=== PATIENT | female | born 1985 ===

== ENCOUNTER 2024-07-13 08:30 | Inpatient (IN) | payer OTHER ==
[~2024-07-13] VITALS: Ht 152.4 cm; Wt 70.3 kg
[2024-07-13] MEDS ORDERED: MEGESTROL ACETA40 MG PO (09:58)
[2024-07-13 10:00] LABS: HEMATOCRIT 42.6 % (36.0-45.00); HEMOGLOBIN 14.8 g/dL (12.0-15.00); MEAN CELL VOLUME 94.7 fL (80.00-100.00); MEAN CORPUSCULAR HEMOGLOBIN 32.9 pg (27.00-32.0); MEAN CORPUSCULAR HGB CONC 34.7 g/dl (32.0-36.0); PLATELET COUNT 234 K/uL (150-450); RED CELL DISTRIBUTION WIDTH 13.2 % (11.5-14.5)
[2024-07-13] MEDS ORDERED: [UNRECOGNIZED DRUG - OTHER] PO (10:00)
[2024-07-13] MEDS ORDERED: RESVERATROL50 MG PO (10:01)
[2024-07-13 10:05] VITALS: BP 140/98
[2024-07-13 10:09] LABS: PH,URINE 5.5 (5.0-8.0); URINE APPEARANCE Cloudy; URINE BILIRRUBIN Small (NEGATIVE); URINE BLOOD Small; URINE COLOR Dark Yellow; URINE GLUCOSE Negative (NEGATIVE); URINE KETONE Negative (NEGATIVE); URINE LEUKOCYTE Small; URINE NITRATE Negative; URINE PROTEIN 30 (NEGATIVE)
[2024-07-13 10:13] LABS: URINE EPITHELIAL CELLS 97.2 uL (0.0-38.8); URINE RBC 41.9 uL (0.0-20.8); URINE WBC 88.8 uL (0.0-23.2)
[2024-07-13 10:22] LABS: URINE CAST 0.29 uL (0.0-1.40)
[2024-07-13 10:23] LABS: INR 0.97; PARTIAL THROMBOPLASTIN TIME 29.8 SECONDS (22.0-34.0); PROTHROMBIN TIME 10.6 SECONDS (9.0-11.5); URINE MUCUS HEAVY
[2024-07-13 10:55] LABS: BILIRUBIN TOTAL 0.95 mg/dL (0.3-1.2); CALCIUM 9.5 mg/dL (8.5-10.1); CREATININE SERUM 0.63 mg/dL (0.55-1.02); GFR 104.14; GLOBULINA 3.3 G/DL (2.4-3.5); POTASSIUM 3.87 mEq/L (3.5-5.1); TOTAL PROTEIN 7.3 gm/dL (6.4-8.2)
[2024-07-23] MEDS ORDERED: CEFAZOLIN SODIUM 1,000 MG VIAL IV ONE (14:15)
[2024-07-23] MEDS ORDERED: POVIDONE-IODINE 118 ML BOTT TOP ONE (14:15)
[2024-07-23] MEDS ORDERED: SUGAMMADEX SODIUM 200 MG/2 ML VIAL IV ONE (17:25)
[2024-07-23] MEDS ORDERED: RINGERS SOLUTION,LACTATED 1,000 ML IV SCH (17:45)
[2024-07-23] MEDS ORDERED: MORPHINE SULFATE 4 MG/ML CARTRIDGE IV PRN (17:45)
[2024-07-23] MEDS ORDERED: PROMETHAZINE HCL 25 MG/ML AMPUL IV PRN (18:00)
[2024-07-23] MEDS ORDERED: MORPHINE SULFATE 4 MG/ML VIAL IV ONE ×2 (18:15→19:45)
[2024-07-23 18:50] VITALS: BP 138/86
[2024-07-23] MEDS ORDERED: ENALAPRILAT DIHYDRATE 1.25 MG/ML VIAL IV PRN (20:45)
[2024-07-23 23:06] LABS: HEMOGLOBIN 12.9 g/dL (12.0-15.00); MEAN CELL VOLUME 93.6 fL (80.00-100.00); MEAN CORPUSCULAR HEMOGLOBIN 31.9 pg (27.00-32.0); PLATELET COUNT 220 K/uL (150-450); RED BLOOD COUNT 4.06 M/uL (4.00-6.00); RED CELL DISTRIBUTION WIDTH 13.3 % (11.5-14.5)
[2024-07-23 23:26] LABS: ALBUMIN 3.5 gm/dL (3.4-5.0); BILIRUBIN TOTAL 0.85 mg/dL (0.3-1.2); CALCIUM 8.5 mg/dL (8.5-10.1); CREATININE SERUM 0.62 mg/dL (0.55-1.02); GFR 106.08; GLOBULINA 2.7 G/DL (2.4-3.5); POTASSIUM 3.54 mEq/L (3.5-5.1); TOTAL PROTEIN 6.2 gm/dL (6.4-8.2)
[2024-07-24 01:00] VITALS: BP 127/77
[2024-07-24 05:00] VITALS: BP 122/79
[2024-07-24 08:40] VITALS: BP 127/82; O2SAT 100
[2024-07-24] MEDS ORDERED: IBUprofen 800 MG TABLET PO PRN (09:00)
[2024-07-24] MEDS ORDERED: SIMETHICONE 125 MG CAPSULE PO SCH (09:00)
[2024-07-24] MEDS ORDERED: TRAMADOL HCL 50 MG TABLET PO PRN (09:00)
[2024-07-24] MEDS ORDERED: DOCUSATE SODIUM 100MG CAP PO SCH (09:00)
== END 2024-07-24 14:45 | disposition home or self-care (01) | DRG 743 ==
LOC: SURH 07-23 08:30 → OB/GYN 07-23 18:08
PROVIDERS: ADMIT Student in an Organized Health Care Education/Training Program; ATTEND Student in an Organized Health Care Education/Training Program
PROC: 0UT74ZZ Resection of Bilateral Fallopian Tubes, Percutaneous Endoscopic Approach (ICD-10-PCS; 2024-07-23)
PROC: 0UT94ZZ Resection of Uterus, Percutaneous Endoscopic Approach (ICD-10-PCS; principal; 2024-07-23 12:45)
DX: D25.1 Intramural leiomyoma of uterus (principal); D25.0 Submucous leiomyoma of uterus; N72 Inflammatory disease of cervix uteri; N80.329 Endometriosis of the posterior cul-de-sac, unspecified depth

== ENCOUNTER 2024-08-09 00:59 | Inpatient (IN) | payer OTHER ==
[~2024-08-09] VITALS: Ht 165.1 cm; Wt 63.5 kg
[~2024-08-09 00:59] MED LIST: MEGESTROL ACETA40 MG PO; RESVERATROL50 MG PO; [UNRECOGNIZED DRUG - OTHER] PO
[2024-08-09] MEDS ORDERED: RINGERS SOLUTION,LACTATED 250 ML IV SCH (01:15)
[2024-08-09] MEDS ORDERED: RINGERS SOLUTION,LACTATED 1,000 ML IV ONE (01:15)
[2024-08-09] MEDS ORDERED: CHLORHEXIDINE GLUCONATE 120 ML BOTTLE TOP ONE (01:17)
[2024-08-09 01:21] LABS: HEMATOCRIT 36.7 % (36.0-45.00); HEMOGLOBIN 12.8 g/dL (12.0-15.00); MEAN CORPUSCULAR HGB CONC 34.8 g/dl (32.0-36.0); PLATELET COUNT 232 K/uL (150-450); RED BLOOD COUNT 3.99 M/uL (4.00-6.00); RED CELL DISTRIBUTION WIDTH 12.3 % (11.5-14.5)
[2024-08-09 01:46] LABS: ALBUMIN 3.5 gm/dL (3.4-5.0); BILIRUBIN TOTAL 0.31 mg/dL (0.3-1.2); CALCIUM 9.1 mg/dL (8.5-10.1); CREATININE SERUM 0.88 mg/dL (0.55-1.02); GFR 70.81; GLOBULINA 3.5 G/DL (2.4-3.5); POTASSIUM 3.81 mEq/L (3.5-5.1)
[2024-08-09 01:55] LABS: INR 0.96; PARTIAL THROMBOPLASTIN TIME 26.7 SECONDS (22.0-34.0); PROTHROMBIN TIME 10.5 SECONDS (9.0-11.5)
[2024-08-09 02:27] LABS: COVID-19 AG NEGATIVE (NEGATIVE); INFLUENZA A AG NEGATIVE (NEGATIVE)
[2024-08-09] MEDS ORDERED: DIPHENHYDRAMINE HCL 50 MG/ML VIAL 1ML IV STA (03:47)
[2024-08-09] MEDS ORDERED: METHYLPREDNISOLONE SOD SUCC 125 MG VIAL IV STA (03:47)
[2024-08-09] MEDS ORDERED: DIPHENHYDRAMINE HCL 50 MG/ML VIAL 1ML ONE (03:48)
[2024-08-09] MEDS ORDERED: METHYLPREDNISOLONE SOD SUCC 125 MG VIAL ONE ×2 (03:48→03:53)
[2024-08-09 05:58] LABS: HEMATOCRIT 31.4 % (36.0-45.00); HEMOGLOBIN 10.9 g/dL (12.0-15.00); MEAN CELL VOLUME 92.2 fL (80.00-100.00); MEAN CORPUSCULAR HEMOGLOBIN 32.2 pg (27.00-32.0); MEAN CORPUSCULAR HGB CONC 34.9 g/dl (32.0-36.0); PLATELET COUNT 187 K/uL (150-450); RED CELL DISTRIBUTION WIDTH 12.3 % (11.5-14.5)
[2024-08-09 09:41] LABS: HEMATOCRIT 34.2 % (36.0-45.00); HEMOGLOBIN 11.5 g/dL (12.0-15.00); MEAN CORPUSCULAR HEMOGLOBIN 31.2 pg (27.00-32.0); MEAN CORPUSCULAR HGB CONC 33.6 g/dl (32.0-36.0); PLATELET COUNT 194 K/uL (150-450); RED BLOOD COUNT 3.68 M/uL (4.00-6.00); RED CELL DISTRIBUTION WIDTH 12.4 % (11.5-14.5)
[2024-08-09] MEDS ORDERED: CIPROFLOXACIN HCL 500 MG TABLET PO SCH (10:01)
[2024-08-09] MEDS ORDERED: RINGERS SOLUTION,LACTATED 1,000 ML IV SCH (10:03)
[2024-08-09 14:25] VITALS: BP 114/75; O2SAT 98
[2024-08-09 15:46] VITALS: BP 130/82; O2SAT 98
[2024-08-09 16:07] VITALS: BP 102/66
[2024-08-09] MEDS ORDERED: FAMOTIDINE/PF 20 MG/2 ML VIAL IV PUSH SCH (21:00)
[2024-08-10 00:13] VITALS: BP 115/70; O2SAT 97
[2024-08-10 00:25] LABS: HEMOGLOBIN 11.5 g/dL (12.0-15.00); MEAN CELL VOLUME 89.7 fL (80.00-100.00); MEAN CORPUSCULAR HEMOGLOBIN 31.2 pg (27.00-32.0); MEAN CORPUSCULAR HGB CONC 34.8 g/dl (32.0-36.0); PLATELET COUNT 201 K/uL (150-450); RED BLOOD COUNT 3.68 M/uL (4.00-6.00); RED CELL DISTRIBUTION WIDTH 13.4 % (11.5-14.5)
[2024-08-10 07:39] VITALS: BP 115/66; O2SAT 99
[2024-08-10] MEDS ORDERED: FUSION PLUS CA1 EACH PO (08:06)
== END 2024-08-10 08:22 | disposition home or self-care (01) | DRG 812 ==
LOC: ER 00:59 → SEC-K 12:18
PROVIDERS: General Practice; Obstetrics & Gynecology; ADMIT Student in an Organized Health Care Education/Training Program; ATTEND Student in an Organized Health Care Education/Training Program
PROC: 30233N1 Transfusion of Nonautologous Red Blood Cells into Peripheral Vein, Percutaneous Approach (ICD-10-PCS; principal; 2024-08-09)
PROC: BU4CZZZ Ultrasonography of Uterus and Ovaries (ICD-10-PCS; 2024-08-09)
PROC: BW21YZZ Computerized Tomography (CT Scan) of Abdomen and Pelvis using Other Contrast (ICD-10-PCS; 2024-08-09)
DX: D50.0 Iron deficiency anemia secondary to blood loss (chronic) (principal); Z90.710 Acquired absence of both cervix and uterus; N89.8 Other specified noninflammatory disorders of vagina